=== PATIENT | male | born 1930 | race Caucasian/White ===

== ENCOUNTER → 2016-07-10 | Outpatient (REF) | payer MEDICARE ==
[2016-07-10 12:09] LABS: CALCIUM OXALATE CRYSTALS LARGE
== END ==
LOC: M LAB REF 11:31
PROVIDERS: ATTEND Internal Medicine
DX: N39.0 Urinary tract infection, site not specified (principal)

== ENCOUNTER 2017-01-12 10:37 | Inpatient (IN) | payer MEDICARE ==
[~2017-01-12] VITALS: Ht 177.8 cm; Wt 58.9 kg
[2017-01-12] MEDS ORDERED: AMOX-CLAV (10:51)
[2017-01-12] MEDS ORDERED: TRAZ-136 PO ×2 (10:51→14:16)
[2017-01-12] MEDS ORDERED: TYLE325C PO (10:51)
[2017-01-12] MEDS ORDERED: GUAI10EL PO (10:51)
[2017-01-12] MEDS ORDERED: RISP1SOL PO (10:51)
[2017-01-12] MEDS ORDERED: DIVA125C5 PO (10:51)
[2017-01-12] MEDS ORDERED: SERT-155 PO (10:51)
[2017-01-12 11:17] LABS: BASO % 0.1 % (0.0-1.0); EOS # 0.2 10^3/uL (0.0-0.50); EOS % 1.9 % (0.0-3.0); IMMATURE GRANULOCYTE % 0.5 % (0-0); LYMPH # 1.2 10^3/uL (1.5-4.5); LYMPH % 13.1 % (24.0-44.0); MEAN CORPUSCULAR HEMOGLOBIN 34.7 pg (27.0-33.0); MEAN CORPUSCULAR HGB CONC 34.7 g/dl (32.0-36.5); MONO # 0.6 10^3/uL (0.0-0.8); NEUTROPHILS # 7.5 10^3/uL (1.8-7.7); NEUTROPHILS % 78.4 % (36.0-66.0); PLATELET COUNT, AUTOMATED 257 10^3/uL (150-450); RED CELL DISTRIBUTION WIDTH 12.1 % (11.5-14.5); WHITE BLOOD COUNT 9.5 10^3/uL (4.0-10.0)
[2017-01-12 11:19] LABS: ADD MANUAL DIFFER NO; DIFF SLIDE NUMBER 131
[2017-01-12 11:32] LABS: INR 1.11
[2017-01-12 11:39] LABS: ALBUMIN 2.5 GM/DL (3.2-5.2); ALBUMIN/GLOBULIN RATIO 0.54 (1.00-1.93); ALKALINE PHOSPHATASE 76 U/L (45-117); ALT/SGPT 15 U/L (12-78); ANION GAP 9 MEQ/L (8-16); AST/SGOT 19 U/L (15-37); BILIRUBIN,DIRECT 0.1 MG/DL (0.0-0.2); BILIRUBIN,TOTAL 0.4 MG/DL (0.2-1.0); BLOOD UREA NITROGEN 12 MG/DL (7-18); CALCIUM LEVEL 8.4 MG/DL (8.8-10.2); CARBON DIOXIDE LEVEL 27 MEQ/L (21-32); CHLORIDE LEVEL 100 MEQ/L (98-107); CREATININE FOR GFR 0.66 MG/DL (0.70-1.30); GLOMERULAR FILTRATION RATE > 60.0 (>35); GLUCOSE, FASTING 99 MG/DL (83-110); POTASSIUM SERUM 3.5 MEQ/L (3.5-5.1); SODIUM LEVEL 136 MEQ/L (136-145); TOTAL PROTEIN 7.1 GM/DL (6.4-8.2)
[2017-01-12] MEDS ORDERED: ISOVUE-370 76% 100ML VIAL (Q9967) As Ordered ONE (11:52)
[2017-01-12] MEDS ORDERED: NS 500 ML IV ONE (14:00)
[2017-01-12] MEDS ORDERED: AUGM250S13 PO (14:16)
--- NOTE | 2017-01-12 14:23 | REP ---
PORTABLE CHEST: REASON: Shock and sepsis. COMPARISON: 04/14/2015 The patient is tilted to the right. The technique utilized in obtaining the radiograph has magnified the cardiac silhouette and accentuated the interstitial markings. Increased interstitial markings are seen diffusely throughout the lung phan increased from the prior exam. There is a discoid opacity in the left lower lobe. The heart is not enlarged. The osseous structures are stable and intact. IMPRESSION: Interstitial edema suspected with left basilar subsegmental atelectatic change. Signed by Marc Garrison DO 01/12/2017 02:59 P
--- NOTE | 2017-01-12 15:22 | REP ---
REASON: Diffuse abdominal pain. COMPARISON: 12/25/2004, which is the latest prior. Contrast utilized: 100 mL Isovue 370. Patchy opacities are seen in the lung bases. There is a small left pleural effusion. There is mild intrahepatic ductal dilatation. There are stable hepatic cysts. There are no enhancing hepatic abnormalities. The gallbladder, spleen, pancreas, adrenal glands, and kidneys are within normal limits for the patient's age. There are bilateral renal cysts, status quo and there are bilateral extrarenal pelves. The pancreas is small which can be seen in diabetics versus atrophy. The size has decreased compared to the prior exam, but there is no abnormal enhancement or inflammation. 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 There is no para-aortic adenopathy. There is no evidence of free fluid or free air in the abdomen. There are multiple mildly dilated gas-filled small bowel loops seen in the abdomen in no particular fashion. There is no evidence of intestinal obstruction. CT PELVIS: There is a large amount of stool in the sigmoid colon. Fecal impaction cannot be ruled out. The urinary bladder appears somewhat distended. Bone window technique throughout the examination shows chronic spinal degenerative changes with bone demineralization increased somewhat from the prior exam. IMPRESSION: 1. Lung base findings as described above. Subsegmental atelectatic change with and without pneumonia particularly on the left where there is also a small left pleural effusion. 2. There is a 3.4 cm size suprarenal abdominal aortic aneurysm. 3. Bilateral cysts. 4. Hepatic cyst unchanged. 5. Large amount of content in the rectal vault and within the sigmoid colon, which needs to be clinically evaluated for to rule out fecal impaction. This is seen in conjunction with what is most likely a slight small bowel ileus. 6. Other findings as describe above. Signed by Marc Garrison DO 01/12/2017 03:37 P
--- NOTE | 2017-01-12 17:04 | HPEPDOC ---
General Date of Admission 01/12/2017 Chief Complaint The patient is a 86-year-old male admitted with a reason for visit of Altered Mental. History of Present Illness PCP: Dr. Aristeo Pearson This is an 84 year old male with a hx of advanced dementia, recurrent aspiration pneumonia the last 6 months presenting this morning for dyspnea and fever for 2 days. The patient was brought in by ambulance and is accompained with his and caregiver. The patient is uncommunicative and was unable to give history therefore the caregiver and his answered all the questions. According to the patient was recently treated for aspiration pneumonia a month ago which was diagnosed via chest x-ray at his primary care physician's placed Dr. Aristeo Pearson. Patient was given Levaquin for 10 days and the family noticed improvement for a couple of days. 2 days to 3 days after completing the antibiotics the patient's symptoms returned and he was started on Augmentin. The patient to this date has completed 24 hours of Augmentin liquid 500 mg. The family notes 2 days ago the patient had a Tmax of 103 and since then his temperature has been elevated but not as high. Family does note the patient has a chronic cough but recently has accompanied by yellowish sputum. They denied having ever vomited, he is currently eats pured food and has a thickened diet. The family states in the last 2 months they have also noticed a significant decline in the patient. The patient has not ambulated in the last 2 months when he previously used to walk around the house and communicate more. Currently he just mumbles and does not have a conversation. Patient was diagnosed with Alzheimer's in 2008.The patient was last admitted here at [facility] dementia unit for advanced dementia. The patient was sent home because his family had conflict on keeping him there. In the ER the patient's vitals were stable his hematological and complete metabolic panel was within normal limits with slight elevation of the lactic acid of 2.1 with normal being at 2.0. Chest x-ray showed Interstitial edema suspected with left basilar subsegmental atelectatic change. CT of the abdomen and pelvis showed small bowel ileus possible fecal impaction. Home Medications Scheduled (Risperidone) 1 Mg/Ml Chanel, 0.5 ML PO BID, (Reported) GIVEN AT LUNCH AND BEDTIME (Sertraline HCl) 50 Mg Tab, 50 MG PO DAILY, (Reported) Amoxicillin/Clavulanate Potas (Augmentin 250-62.5 mg/5Ml) 1 Maegan Maegan, 250 MG PO BID, (Reported) Divalproex Sodium (Divalproex Sodium) 125 Mg Cap, 250 MG PO BID, (Reported) Trazodone HCl (Trazodone HCl) 100 Mg Tab, 200 MG PO QHS, (Reported) Trazodone HCl (Trazodone HCl) 100 Mg Tab, 50 MG PO DAILY, (Reported) Scheduled PRN (Tylenol) 325 Mg Cap, 325 MG PO Q6H PRN for PAIN, (Reported) Guaifenesin (Guaifenesin) 10 Ml Syrp, 5 ML PO Q4H PRN for CONGESTION, (Reported) Allergies Coded Allergies: No Known Drug Allergy (Verified Allergy, Unknown, 07/11/12) Past Medical History Medical History 1. Alzheimer's dementia 2. Recurrent aspiration pneumonia 3. Stroke Surgical History 1. Inguinal hernia repair 4 2. 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 Family History Heart disease in father and grandmother. Arthritis in grandparents. Hypertension in grandmother. Mother had Alzheimer's Social History * Smoker: Denies Alcohol: Denies Drugs: denies Recent Travel/Sick Contacts: Denies: Recent travel, Recent sick contacts Psychosocial History: Dementia Review of Symptoms Constitutional: Reports: Fever (Tmax 103 on 01/10/17), Denies: Chills, Night Sweats Eyes: Denies: Pain, Vision change ENT: Denies: Head Aches, Ear Pain, Dysphagia Skin: Denies: Rash, Lesions, Breakdown Pulmonary: Reports: Cough (chronic recently yellow sputum for the last couple days), Denies: Dyspnea Cardiovascular: Denies: Chest Pain, Palpitations, Orthopnea, Paroxysmal Noc. Dyspnea, Lt Headedness Gastrointestinal: Reports: Constipation, Denies: Nausea, Vomiting, Abdominal Pain, Diarrhea Genitourinary: Denies: Dysuria, Frequency, Incontinence, Retention Hematologic: Denies: Bruising, Bleeding Excessively Musculoskeletal: Denies: Neck Pain, Back Pain, Joint Pain, Muscle Pain, Spasms Neurological: Reports: Other Symptoms (underlying advanced dementia), Denies: Weakness, Numbness, Change in speech, Confusion Psych: Denies: Depression, Memory Issues Physical Examination General Exam: Positive: Other (this is an 86-year-old pleasant gentleman in no acute distress with advanced dementia.), Negative: Alert Eye Exam: Negative: Sclera icteric ENT Exam: Positive: Atraumatic, Mucous membr. moist/pink, Pharynx Normal Neck Exam: Positive: Supple, Negative: JVD, thyromegaly Chest Exam: Positive: Other (bibasilar crackles diminished breath sounds due to lack of effort.) Heart Exam: Positive: Rate Normal, Regular Rhythm, Normal S1, Normal S2, Negative: Murmurs, Rubs Telemetry: Positive: No significant arrhythmia Abdomen Exam: Positive: Normal bowel sounds, Negative: Soft (rigid abdomen), Tenderness, Hepatospenomegaly Extremity Exam: Positive: Normal pulses, Negative: Clubbing, Cyanosis, Edema Skin Exam: Positive: Nl turgor and temperature, Negative: Breakdown, Lesion Neuro Exam: Negative: Normal Speech (noncommunicative) Vital Signs Vital Signs Date Time Temp Pulse Resp B/P (MAP) Pulse Ox O2 Delivery O2 Flow Rate FiO2 01/12/17 13:42 146/111 (123) 01/12/17 13:37 92 01/12/17 12:37 76 01/12/17 10:40 99.0 24 Room Air Laboratory Data Labs 24H Laboratory Tests 2 01/12/17 11:05: Prothrombin Time 14.5, Prothromb Time International Ratio 1.11, Activated Partial Thromboplast Time 34.1, Anion Gap 9, Glomerular Filtration Rate > 60.0, Calcium Level 8.4L, Aspartate Amino Transf (AST/SGOT) 19, Alanine Aminotransferase (ALT/SGPT) 15, Alkaline Phosphatase 76, Total Bilirubin 0.4, Direct Bilirubin 0.1, Total Protein 7.1, Albumin 2.5L, Albumin/Globulin Ratio 0.54L 01/12/17 11:06: Immature Granulocyte % (Auto) 0.5H, White Blood Count 9.5, Red Blood Count 3.83L , Hemoglobin 13.3L, Hematocrit 38.3L, Mean Corpuscular Volume 100.0H, Mean Corpuscular Hemoglobin 34.7H, Mean Corpuscular Hemoglobin Concent 34.7, Red Cell Distribution Width 12.1, Platelet Count 257, Neutrophils (%) (Auto) 78.4H, Lymphocytes (%) (Auto) 13.1L, Monocytes (%) (Auto) 6.0H, Eosinophils (%) (Auto) 1.9, Basophils (%) (Auto) 0.1, Neutrophils # (Auto) 7.5, Lymphocytes # (Auto) 1.2L, Monocytes # (Auto) 0.6, Eosinophils # (Auto) 0.2, Basophils # (Auto) 0.0, Immature Granulocyte # (Auto) 0.1H, Nucleated Red Blood Cells % (auto) 0.0, Lactic Acid Level 2.1*H 01/12/17 11:31: Urine Appearance CLEAR, Urine Color YELLOW, Urine pH 6.0, Urine Specific [place] 1.016, Urine Protein NEGATIVE, Urine Glucose (UA) NEGATIVE, Urine Ketones NEGATIVE, Urine Urobilinogen 2.0H, Urine Bilirubin NEGATIVE, Urine Leukocyte Esterase NEGATIVE, Urine Blood NEGATIVE, Urine Nitrite NEGATIVE, Urine WBC (Auto) 1, Urine RBC (Auto) 2, Urine Hyaline Casts (Auto) 0, Urine Bacteria (Auto) NEGATIVE, Urine Squamous Epithelial Cells 0, Urine Amorphous Sediment SMALLH, Urine Mucus (Auto) SMALL, Urine Sperm (Auto) CBC/BMP Laboratory Tests 01/12/17 11:05 01/12/17 11:06 Red Blood Count 3.83 L, Mean Corpuscular Volume 100.0 H, Mean Corpuscular Hemoglobin 34.7 H, Mean Corpuscular Hemoglobin Concent 34.7, Red Cell Distribution Width 12.1, Neutrophils (%) (Auto) 78.4 H, Lymphocytes (%) (Auto) 13.1 L, Monocytes (%) (Auto) 6.0 H, Eosinophils (%) (Auto) 1.9, Basophils (%) ( Auto) 0.1, Neutrophils # (Auto) 7.5, Lymphocytes # (Auto) 1.2 L, Monocytes # ( Auto) 0.6, Eosinophils # (Auto) 0.2, Basophils # (Auto) 0.0 Microbiology Microbiology 01/12/17 Blood Culture, Received Pending 01/12/17 Blood Culture, Received Pending 01/12/17 Influenza Virus Type A Antigen - Final, Complete 01/12/17 Influenza Virus Type B Antigen - Final, Complete 01/12/17 Urine Culture, Received Pending Assessment/Plan 1. Recurrent aspiration pneumonia- patient does have a history of recurrent aspiration pneumonia for the past 6 months. We will admit the patient and treat him with IV Levaquin deep nasotracheal suction q2hp PRN, elevated head of the bed swallow evaluation 2. History of advanced Alzheimer dementia - Family is considering hospice, till she can meet with them on Saturday the patient will be admitted and get medical treatment. He is to continue all his home medication 3. DVT prophylaxis Lovenox 4. Diet - pured diet 5. Small bowel ileus - fecal in the rectal vault prescribed Sudeep S twice a day , milk of Magnesium daily 6. Hospice consult 7. CODE STATUS DNR Plan / VTE VTE Prophylaxis Ordered?: Yes (Lovenox) GME ATTESTATION GME ATTESTATION My preceptor for this patient encounter was physically present in the building during the encounter and was fully available. As needed, all aspects of the patient interview, examination, medical decision making process, and medical care plan development were reviewed and approved by the preceptor. Preceptor is aware and concurs with the plan as stated in the body of this note and will attest to such by his/her cosignature. VADIM MCKEE DO Jan 12, 2017 14:29
[2017-01-12] MEDS ORDERED: guaiFENesin SYRUP 200 MG/10 ML UDC PO PRN (17:30)
[2017-01-12] MEDS: LevoFLOXacin IV 750 MG in APPROPRIATE DILUENT 1 EA IV SCH (18:10)
[2017-01-12 20:24] VITALS: BP 108/73
[2017-01-12 22:00] VITALS: BP 96/61
[2017-01-12] MEDS: traZODone 100 MG TAB PO SCH (22:42)
[2017-01-12] MEDS: SENOKOT S TAB PO SCH (22:43)
[2017-01-12] MEDS: DIVALPROEX SPRINKLE 125 MG CAP PO SCH (22:44)
[2017-01-12] MEDS: risperiDONE 1 MG/1 ML SOLN ORAL SYRINGE PO SCH (22:44)
[2017-01-13 06:00] VITALS: BP 106/73
[2017-01-13 06:20] LABS: MEAN CORPUSCULAR HEMOGLOBIN 34.4 pg (27.0-33.0); MEAN CORPUSCULAR VOLUME 98.5 fl (80.0-96.0); RED CELL DISTRIBUTION WIDTH 12.1 % (11.5-14.5)
[2017-01-13 06:44] LABS: ANION GAP 7 MEQ/L (8-16); BLOOD UREA NITROGEN 13 MG/DL (7-18); CALCIUM LEVEL 8.3 MG/DL (8.8-10.2); CARBON DIOXIDE LEVEL 26 MEQ/L (21-32); CHLORIDE LEVEL 107 MEQ/L (98-107); CREATININE FOR GFR 0.79 MG/DL (0.70-1.30); GLOMERULAR FILTRATION RATE > 60.0 (>35); GLUCOSE, FASTING 96 MG/DL (83-110); SODIUM LEVEL 140 MEQ/L (136-145)
--- NOTE | 2017-01-13 09:38 | IPNPDOC ---
Subjective Date Seen The patient was seen on 01/13/17. Subjective Chief Complaint/HPI Patient seen and examined at the bedside. Remains obtunded, and non-responsive to verbal or physical stimuli. Patient's at the bedside, updated. Objective Physical Examination General Exam: Positive: No Acute Distress, Negative: Alert, Cooperative ENT Exam: Positive: Atraumatic, Mucous membr. moist/pink Neck Exam: Negative: JVD Chest Exam: Positive: Diminished Heart Exam: Positive: Rate Normal, Normal S1, Normal S2 Abdomen Exam: Positive: Soft, Negative: Tenderness Extremity Exam: Negative: Tenderness, Swelling Assessment /Plan Plan/VTE VTE Prophylaxis Ordered?: Yes Plan Recurrent Aspiration Pneumonia Patient with multiple episodes of recurrent aspiration in the past 2/2 underlying dementia No feeding tube as per patient's Will cont Pureed diet We will cont to treat the patient with Levaquin at this time The patient's has requested to meet with hospice--she would like to continue medical treatment in the AM History of Advanced Alzheimer Dementia Cont current regimen DVT prophylaxis Lovenox [place] CODE STATUS: DNR/DNI VS, I&O, 24H, [facility] Vital Signs/I&O Vital Signs Date Time Temp Pulse Resp B/P (MAP) Pulse Ox O2 Delivery O2 Flow Rate FiO2 01/13/17 06:00 98.7 84 19 106/73 (84) 95 Room Air I&O- Last 24 Hours up to 6 AM 01/14/17 06:00 Intake Total 0 ml Balance 0 ml Laboratory Data 24H LABS Laboratory Tests 2 01/12/17 11:05: Prothrombin Time 14.5, Prothromb Time International Ratio 1.11, Activated Partial Thromboplast Time 34.1, Anion Gap 9, Glomerular Filtration Rate > 60.0, Calcium Level 8.4L, Aspartate Amino Transf (AST/SGOT) 19, Alanine Aminotransferase (ALT/SGPT) 15, Alkaline Phosphatase 76, Total Bilirubin 0.4, Direct Bilirubin 0.1, Total Protein 7.1, Albumin 2.5L, Albumin/Globulin Ratio 0.54L 01/12/17 11:06: Immature Granulocyte % (Auto) 0.5H, White Blood Count 9.5, Red Blood Count 3.83L , Hemoglobin 13.3L, Hematocrit 38.3L, Mean Corpuscular Volume 100.0H, Mean Corpuscular Hemoglobin 34.7H, Mean Corpuscular Hemoglobin Concent 34.7, Red Cell Distribution Width 12.1, Platelet Count 257, Neutrophils (%) (Auto) 78.4H, Lymphocytes (%) (Auto) 13.1L, Monocytes (%) (Auto) 6.0H, Eosinophils (%) (Auto) 1.9, Basophils (%) (Auto) 0.1, Neutrophils # (Auto) 7.5, Lymphocytes # (Auto) 1.2L, Monocytes # (Auto) 0.6, Eosinophils # (Auto) 0.2, Basophils # (Auto) 0.0, Immature Granulocyte # (Auto) 0.1H, Nucleated Red Blood Cells % (auto) 0.0, Lactic Acid Level 2.1*H 01/12/17 11:31: Urine Appearance CLEAR, Urine Color YELLOW, Urine pH 6.0, Urine Specific [place] 1.016, Urine Protein NEGATIVE, Urine Glucose (UA) NEGATIVE, Urine Ketones NEGATIVE, Urine Urobilinogen 2.0H, Urine Bilirubin NEGATIVE, Urine Leukocyte Esterase NEGATIVE, Urine Blood NEGATIVE, Urine Nitrite NEGATIVE, Urine WBC (Auto) 1, Urine RBC (Auto) 2, Urine Hyaline Casts (Auto) 0, Urine Bacteria (Auto) NEGATIVE, Urine Squamous Epithelial Cells 0, Urine Amorphous Sediment SMALLH, Urine Mucus (Auto) SMALL, Urine Sperm (Auto) 01/12/17 17:38: Lactic Acid Followup at 4 Hours 2.2*H 01/13/17 06:09: Anion Gap 7L, Glomerular Filtration Rate > 60.0, Blood Urea Nitrogen 13, Creatinine 0.79, Sodium Level 140, Potassium Level 4.0, Chloride Level 107, Carbon Dioxide Level 26, Calcium Level 8.3L CBC/BMP Laboratory Tests 01/12/17 11:05 01/12/17 11:06 Red Blood Count 3.83 L, Mean Corpuscular Volume 100.0 H, Mean Corpuscular Hemoglobin 34.7 H, Mean Corpuscular Hemoglobin Concent 34.7, Red Cell Distribution Width 12.1, Neutrophils (%) (Auto) 78.4 H, Lymphocytes (%) (Auto) 13.1 L, Monocytes (%) (Auto) 6.0 H, Eosinophils (%) (Auto) 1.9, Basophils (%) ( Auto) 0.1, Neutrophils # (Auto) 7.5, Lymphocytes # (Auto) 1.2 L, Monocytes # ( Auto) 0.6, Eosinophils # (Auto) 0.2, Basophils # (Auto) 0.0 01/13/17 06:09 Red Blood Count 3.31 L, Mean Corpuscular Volume 98.5 H, Mean Corpuscular Hemoglobin 34.4 H, Mean Corpuscular Hemoglobin Concent 35.0, Red Cell Distribution Width 12.1, Calcium Level 8.3 L Microbiology Microbiology 01/12/17 Blood Culture, Received Pending 01/12/17 Blood Culture, Received Pending 01/12/17 Influenza Virus Type A Antigen - Final, Complete 01/12/17 Influenza Virus Type B Antigen - Final, Complete 01/12/17 Urine Culture, Received Pending ALOK JIMENEZ MD Jan 13, 2017 09:38
[2017-01-13] MEDS: MOM 30ML SUSPENSION UDC PO SCH ×2 (10:07→10:09)
[2017-01-13] MEDS: SENOKOT S TAB PO SCH ×2 (10:07→20:06)
[2017-01-13] MEDS: SERTRALINE HCL 50 MG TAB PO SCH (10:07)
[2017-01-13] MEDS: ENOXAPARIN 40 MG/0.4 ML SYRINGE (J1650) SC SCH (10:07)
[2017-01-13] MEDS: traZODone 50 MG TAB PO SCH (10:07)
[2017-01-13] MEDS: DIVALPROEX SPRINKLE 125 MG CAP PO SCH ×2 (10:07→20:05)
[2017-01-13] MEDS: risperiDONE 1 MG/1 ML SOLN ORAL SYRINGE PO SCH ×2 (11:54→20:05)
--- NOTE | 2017-01-13 12:36 | ECGEPIP ---
Stationary ECG Study [facility] - ED Test Date: 2017-01-12 Pat Name: REANNA MEEHAN Department: Room: - Gender: M Echo Technician: afia : [id number] Requested By: AIDE Loja Order Number: [id number] Reading MD: Janeth Zaidi Measurements Intervals [place] Rate: 77 P: 49 CT: 186 QRS: -39 QRSD: 98 T: 66 QT: 393 QTc: 446 Interpretive Statements SINUS RHYTHM MARKED LEFT AXIS DEVIATION BASELINE ARTIFACT LIMITS INTERPRETATION Electronically Signed On 01-13-2017 12:36:00 EDT by Janeth Zaidi
[2017-01-13 14:00] VITALS: BP 95/64
[2017-01-13] MEDS: LevoFLOXacin IV 750 MG in APPROPRIATE DILUENT 1 EA IV SCH (17:21)
[2017-01-13] MEDS: traZODone 100 MG TAB PO SCH (20:05)
[2017-01-13 22:00] VITALS: BP 92/59
[2017-01-14 06:00] VITALS: BP 101/61
[2017-01-14] MEDS: traZODone 50 MG TAB PO SCH (09:00)
[2017-01-14] MEDS: DIVALPROEX SPRINKLE 125 MG CAP PO SCH ×2 (09:00→21:10)
[2017-01-14] MEDS: SENOKOT S TAB PO SCH ×2 (09:00→21:00)
[2017-01-14] MEDS: ENOXAPARIN 40 MG/0.4 ML SYRINGE (J1650) SC SCH (09:00)
[2017-01-14] MEDS: MOM 30ML SUSPENSION UDC PO SCH (09:00)
[2017-01-14] MEDS: SERTRALINE HCL 50 MG TAB PO SCH (09:00)
[2017-01-14] MEDS ORDERED: FLEET ENEMA PR PRN (11:00)
[2017-01-14] MEDS: risperiDONE 1 MG/1 ML SOLN ORAL SYRINGE PO SCH ×2 (11:54→21:10)
[2017-01-14 14:00] VITALS: BP 117/61
--- NOTE | 2017-01-14 14:07 | IPNPDOC ---
Subjective Date Seen The patient was seen on 01/14/17. Subjective Chief Complaint/HPI Patient seen and examined at the bedside. Remains lethargic and mostly unresponsive to verbal/physical examination. Objective Physical Examination General Exam: Positive: No Acute Distress, Negative: Alert, Cooperative ENT Exam: Positive: Atraumatic, Mucous membr. moist/pink Neck Exam: Negative: JVD Chest Exam: Positive: Diminished Heart Exam: Positive: Rate Normal, Normal S1, Normal S2 Abdomen Exam: Positive: Soft, Negative: Tenderness Extremity Exam: Negative: Tenderness, Swelling Assessment /Plan Plan/VTE VTE Prophylaxis Ordered?: Yes Plan Recurrent Aspiration Pneumonia Patient with multiple episodes of recurrent aspiration in the past 2/2 underlying dementia No feeding tube as per patient's Will cont Pureed diet We will cont to treat the patient with Levaquin at this time The patient's has requested to meet with hospice--she would like to continue medical treatment in the AM History of Advanced Alzheimer Dementia Cont current regimen DVT prophylaxis Lovenox [place] CODE STATUS: DNR/DNI Dispo--Awaiting Hospice consult. Patient's family will likely need House of Hospice placement. VS, I&O, 24H, Fishbone Vital Signs/I&O Vital Signs Date Time Temp Pulse Resp B/P (MAP) Pulse Ox O2 Delivery O2 Flow Rate FiO2 01/14/17 11:08 Room Air 01/14/17 06:00 98.5 61 14 101/61 (74) 92 I&O- Last 24 Hours up to 6 AM 01/15/17 06:00 Intake Total 240 ml Balance 240 ml Laboratory Data Microbiology Microbiology 01/12/17 Blood Culture - Preliminary, Resulted No Growth after 48 hours. All Specime... 01/12/17 Blood Culture - Preliminary, Resulted No Growth after 48 hours. All Specime... 01/12/17 Influenza Virus Type A Antigen - Final, Complete 01/12/17 Influenza Virus Type B Antigen - Final, Complete 01/12/17 Urine Culture - Final, Complete ALOK JIMENEZ MD Jan 14, 2017 14:06
[2017-01-14] MEDS: LevoFLOXacin IV 750 MG in APPROPRIATE DILUENT 1 EA IV SCH (18:00)
[2017-01-14] MEDS: traZODone 100 MG TAB PO SCH (21:10)
[2017-01-14 22:00] VITALS: BP 96/59
[2017-01-15 06:00] VITALS: BP 106/66
[2017-01-15] MEDS: SENOKOT S TAB PO SCH ×2 (08:59→17:52)
[2017-01-15] MEDS: MOM 30ML SUSPENSION UDC PO SCH (08:59)
[2017-01-15] MEDS: traZODone 50 MG TAB PO SCH (10:28)
[2017-01-15] MEDS: SERTRALINE HCL 50 MG TAB PO SCH (10:28)
[2017-01-15] MEDS: DIVALPROEX SPRINKLE 125 MG CAP PO SCH ×2 (10:28→17:53)
[2017-01-15] MEDS: ENOXAPARIN 40 MG/0.4 ML SYRINGE (J1650) SC SCH (10:29)
--- NOTE | 2017-01-15 11:09 | IPNPDOC ---
Date Seen The patient was seen on 01/15/17. Progress Note SUBJECTIVE: Patient is a 86-year-old male with end-stage advanced/advanced Alzheimer's and recurrent aspiration pneumonia. He remains lethargic. Otherwise , unresponsive to verbal and physical examination. His is present at bedside and does feel that he is comfortable otherwise. She is to meet with hospice today and will discuss further comfort measures and home with hospice versus placement in hospice house versus usp. OBJECTIVE PHYSICAL EXAMINATION: VITAL SIGNS: Please see below. GENERAL: No acute distress HEENT: PERRLA CARDIOVASCULAR: Regular rate and rhythm. RESPIRATORY: Diminished bibasilar breath sounds, otherwise clear. ABDOMINAL: Soft, nontender, no rebound EXTREMITIES: No edema, no calf tenderness DVT prophylaxis ordered?: Yes ASSESSMENT AND PLAN: This is a [86-year-old gentleman with advanced dementia and worsening recurrent aspiration pneumonia. PROBLEMS: 1.Recurrent Aspiration Pneumonia Patient with multiple episodes of recurrent aspiration in the past 2/2 underlying dementia No feeding tube as per patient's Will cont Pureed diet when necessary/as tolerated We will cont to treat the patient with Levaquin at this time The patient's is to meet with hospice this morning for further delineation of disposition. 2.History of Advanced Alzheimer Dementia Cont current regimen 3.DVT prophylaxis Lovenox [place] CODE STATUS: DNR/DNI Dispo--Awaiting Hospice consult. Patient's family will likely need House of Hospice placement. DISPOSITION: Awaiting hospice consult. VS, I&O, 24H, Fishbone Vital Signs/I&O Vital Signs Date Time Temp Pulse Resp B/P (MAP) Pulse Ox O2 Delivery O2 Flow Rate FiO2 01/15/17 09:32 Room Air 01/15/17 06:00 98.4 69 18 106/66 (79) 90 I&O- Last 24 Hours up to 6 AM 01/16/17 06:00 Intake Total 0 ml Balance 0 ml Laboratory Data Microbiology Microbiology 01/12/17 Blood Culture - Preliminary, Resulted No Growth after 48 hours. All Specime... 01/12/17 Blood Culture - Preliminary, Resulted No Growth after 48 hours. All Specime... 01/12/17 Influenza Virus Type A Antigen - Final, Complete 01/12/17 Influenza Virus Type B Antigen - Final, Complete 01/12/17 Urine Culture - Final, Complete JULIO RAMAN DO Jan 15, 2017 11:09
[2017-01-15] MEDS: risperiDONE 1 MG/1 ML SOLN ORAL SYRINGE PO SCH ×2 (12:00→17:53)
[2017-01-15 14:00] VITALS: BP 107/67
[2017-01-15] MEDS: LevoFLOXacin IV 750 MG in APPROPRIATE DILUENT 1 EA IV SCH (17:52)
[2017-01-15] MEDS: traZODone 100 MG TAB PO SCH (17:52)
[2017-01-15 22:00] VITALS: BP 107/68
[2017-01-16 06:00] VITALS: BP 113/67
[2017-01-16] MEDS: SENOKOT S TAB PO SCH ×2 (09:00→15:38)
[2017-01-16] MEDS: MOM 30ML SUSPENSION UDC PO SCH (09:00)
[2017-01-16] MEDS: traZODone 50 MG TAB PO SCH (09:15)
[2017-01-16] MEDS: SERTRALINE HCL 50 MG TAB PO SCH (09:15)
[2017-01-16] MEDS: DIVALPROEX SPRINKLE 125 MG CAP PO SCH ×2 (09:15→17:51)
[2017-01-16] MEDS: ENOXAPARIN 40 MG/0.4 ML SYRINGE (J1650) SC SCH (09:16)
[2017-01-16] MEDS ORDERED: ONDANSETRON 4 MG ORAL DISINTEGRATING TAB (S0181) PO PRN (10:00)
[2017-01-16] MEDS ORDERED: HYOSCYAMINE SULFATE 0.125 MG SUBL TABLET PO PRN (10:00)
[2017-01-16] MEDS ORDERED: ATROPINE SULFATE 1% OP SOLN 2 ML BTL SL PRN (10:00)
[2017-01-16] MEDS ORDERED: FLEET ENEMA PR PRN (10:00)
--- NOTE | 2017-01-16 11:50 | IPNPDOC ---
Date Seen The patient was seen on 01/16/17. Progress Note SUBJECTIVE: Patient is a 86 yo male seen at bedside with family present. No new issues. OBJECTIVE PHYSICAL EXAMINATION: VITAL SIGNS: Please see below. GENERAL: lethargic HEENT: perrla, throat clear CARDIOVASCULAR: RRR RESPIRATORY: CTA BILATERALLY. ABDOMINAL: SOFT EXTREMITIES: NO EDEMA, NONTENDER LABORATORY DATA: NONE. ASSESSMENT AND PLAN: This is a 86 YO male with advancing dementia and recurrent aspiration pneumonia. PROBLEMS: 1.Recurrent Aspiration Pneumonia 2.Lactic acidosis on admission likely secondary to aspiration pneumonia 3. Protein calorie malnutrition in setting of advanced dementia wit albumin 2.5 , BMI 18.6 4.History of Advanced Alzheimer Dementia 5.DVT prophylaxis Lovenox [place] CODE STATUS: DNR/DNI and now MUSEUM OR ZOO DIRECTOR. DISPOSITION: [Awaiting clarification from hospice and PFS. Updated MOLST to include MUSEUM OR ZOO DIRECTOR (witnessed by ) and added MUSEUM OR ZOO DIRECTOR order set. VS, I&O, 24H, Fishbone Vital Signs/I&O Vital Signs Date Time Temp Pulse Resp B/P (MAP) Pulse Ox O2 Delivery O2 Flow Rate FiO2 01/16/17 06:00 98.0 60 18 113/67 (82) 92 Room Air I&O- Last 24 Hours up to 6 AM 01/17/17 06:00 Intake Total 0 ml Balance 0 ml Laboratory Data Microbiology Microbiology 01/12/17 Blood Culture - Preliminary, Resulted No Growth after 72 hours. All specime... 01/12/17 Blood Culture - Preliminary, Resulted No Growth after 72 hours. All specime... 01/12/17 Influenza Virus Type A Antigen - Final, Complete 01/12/17 Influenza Virus Type B Antigen - Final, Complete 01/12/17 Urine Culture - Final, Complete JULIO RAMAN DO Jan 16, 2017 11:50
[2017-01-16] MEDS: risperiDONE 1 MG/1 ML SOLN ORAL SYRINGE PO SCH ×2 (13:31→17:51)
[2017-01-16 14:00] VITALS: BP 110/72
[2017-01-16] MEDS: LevoFLOXacin 500 MG TABLET PO SCH (15:38)
[2017-01-16] MEDS: traZODone 100 MG TAB PO SCH (17:51)
[2017-01-17] MEDS: LevoFLOXacin 500 MG TABLET PO SCH (05:50)
[2017-01-17] MEDS: MORPHINE 10MG/0.5ML ORAL CONCENTRATE SOLUTION U/D SL PRN ×2 (05:59→19:40)
[2017-01-17] MEDS: MOM 30ML SUSPENSION UDC PO SCH (09:06)
[2017-01-17] MEDS: DIVALPROEX SPRINKLE 125 MG CAP PO SCH ×2 (09:06→18:03)
[2017-01-17] MEDS: SERTRALINE HCL 50 MG TAB PO SCH (09:06)
[2017-01-17] MEDS: traZODone 50 MG TAB PO SCH (09:06)
[2017-01-17] MEDS: ENOXAPARIN 40 MG/0.4 ML SYRINGE (J1650) SC SCH (09:06)
[2017-01-17] MEDS: SENOKOT S TAB PO SCH ×2 (09:06→18:03)
[2017-01-17] MEDS: risperiDONE 1 MG/1 ML SOLN ORAL SYRINGE PO SCH ×2 (11:54→18:03)
[2017-01-17] MEDS: traZODone 100 MG TAB PO SCH (18:03)
[2017-01-18] MEDS: LevoFLOXacin 500 MG TABLET PO SCH (06:07)
[2017-01-18] MEDS: MOM 30ML SUSPENSION UDC PO SCH (09:00)
[2017-01-18] MEDS: DIVALPROEX SPRINKLE 125 MG CAP PO SCH ×2 (09:33→17:39)
[2017-01-18] MEDS: traZODone 50 MG TAB PO SCH (09:33)
[2017-01-18] MEDS: SERTRALINE HCL 50 MG TAB PO SCH (09:34)
[2017-01-18] MEDS: SENOKOT S TAB PO SCH ×2 (09:34→17:39)
[2017-01-18] MEDS: ENOXAPARIN 40 MG/0.4 ML SYRINGE (J1650) SC SCH (09:34)
[2017-01-18] MEDS: risperiDONE 1 MG/1 ML SOLN ORAL SYRINGE PO SCH ×2 (12:00→17:39)
[2017-01-18] MEDS: traZODone 100 MG TAB PO SCH (17:39)
[2017-01-19] MEDS: LevoFLOXacin 500 MG TABLET PO SCH (06:19)
[2017-01-19] MEDS: MOM 30ML SUSPENSION UDC PO SCH ×2 (09:00→09:31)
[2017-01-19] MEDS: DIVALPROEX SPRINKLE 125 MG CAP PO SCH ×2 (09:31→19:01)
[2017-01-19] MEDS: ENOXAPARIN 40 MG/0.4 ML SYRINGE (J1650) SC SCH (09:31)
[2017-01-19] MEDS: SERTRALINE HCL 50 MG TAB PO SCH (09:32)
[2017-01-19] MEDS: SENOKOT S TAB PO SCH ×2 (09:32→19:00)
[2017-01-19] MEDS: traZODone 50 MG TAB PO SCH (09:32)
[2017-01-19] MEDS: risperiDONE 1 MG/1 ML SOLN ORAL SYRINGE PO SCH ×2 (12:40→19:01)
[2017-01-19] MEDS: traZODone 100 MG TAB PO SCH (19:01)
[2017-01-20] MEDS: LevoFLOXacin 500 MG TABLET PO SCH (05:59)
[2017-01-20] MEDS: traZODone 50 MG TAB PO SCH (08:58)
[2017-01-20] MEDS: SENOKOT S TAB PO SCH ×2 (08:59→18:02)
[2017-01-20] MEDS: DIVALPROEX SPRINKLE 125 MG CAP PO SCH ×2 (08:59→18:02)
[2017-01-20] MEDS: SERTRALINE HCL 50 MG TAB PO SCH (08:59)
[2017-01-20] MEDS: ENOXAPARIN 40 MG/0.4 ML SYRINGE (J1650) SC SCH (09:00)
[2017-01-20] MEDS: MOM 30ML SUSPENSION UDC PO SCH ×2 (09:00→18:09)
[2017-01-20] MEDS: risperiDONE 1 MG/1 ML SOLN ORAL SYRINGE PO SCH ×2 (13:50→18:03)
[2017-01-20] MEDS: MORPHINE 10MG/0.5ML ORAL CONCENTRATE SOLUTION U/D SL PRN (17:11)
[2017-01-20] MEDS: traZODone 100 MG TAB PO SCH (18:02)
[2017-01-21] MEDS: LevoFLOXacin 500 MG TABLET PO SCH (05:56)
[2017-01-21] MEDS: SERTRALINE HCL 50 MG TAB PO SCH (08:36)
[2017-01-21] MEDS: SENOKOT S TAB PO SCH ×2 (08:36→17:56)
[2017-01-21] MEDS: traZODone 50 MG TAB PO SCH (08:36)
[2017-01-21] MEDS: DIVALPROEX SPRINKLE 125 MG CAP PO SCH ×2 (08:36→17:57)
[2017-01-21] MEDS: MOM 30ML SUSPENSION UDC PO SCH (08:36)
[2017-01-21] MEDS: ENOXAPARIN 40 MG/0.4 ML SYRINGE (J1650) SC SCH (08:36)
[2017-01-21] MEDS ORDERED: SCOPOLAMINE 1.5 MG TRANSDERMAL TOP SCH (09:00)
[2017-01-21] MEDS: risperiDONE 1 MG/1 ML SOLN ORAL SYRINGE PO SCH ×2 (12:01→17:56)
[2017-01-21] MEDS: MORPHINE 10MG/0.5ML ORAL CONCENTRATE SOLUTION U/D SL PRN ×3 (14:56→23:08)
[2017-01-21] MEDS: traZODone 100 MG TAB PO SCH (17:56)
[2017-01-21] MEDS ORDERED: ACETAMINOPHEN 325 MG SUPP PR ONE (20:30)
[2017-01-21] MEDS ORDERED: MORPHINE 10MG/0.5ML ORAL CONCENTRATE SOLUTION U/D SL ONE (20:45)
[2017-01-21] MEDS: LORazepam 1 MG TAB PO PRN ×2 (20:47→23:07)
[2017-01-22] MEDS: LORazepam 1 MG TAB PO PRN ×3 (05:01→10:41)
[2017-01-22] MEDS: MORPHINE 10MG/0.5ML ORAL CONCENTRATE SOLUTION U/D SL PRN ×3 (05:01→10:41)
[2017-01-22] MEDS: LevoFLOXacin 500 MG TABLET PO SCH (05:43)
[2017-01-22] MEDS: traZODone 50 MG TAB PO SCH (08:06)
[2017-01-22] MEDS: MOM 30ML SUSPENSION UDC PO SCH (08:06)
[2017-01-22] MEDS: DIVALPROEX SPRINKLE 125 MG CAP PO SCH (08:06)
[2017-01-22] MEDS: SERTRALINE HCL 50 MG TAB PO SCH (08:06)
[2017-01-22] MEDS: SENOKOT S TAB PO SCH (08:06)
[2017-01-22] MEDS: ENOXAPARIN 40 MG/0.4 ML SYRINGE (J1650) SC SCH (08:07)
[2017-01-22] MEDS ORDERED: MORP20SO3 SL (09:12)
[2017-01-22] MEDS ORDERED: ATIV1TAB7 PO (09:12)
[2017-01-22] MEDS ORDERED: ONDA4TAB6 PO (09:12)
[2017-01-22] MEDS ORDERED: HYOS125TA PO (09:12)
[2017-01-22] MEDS ORDERED: MORP20SO3 PO (10:13)
[2017-01-22] MEDS ORDERED: LORA0.5T11 PO (10:13)
--- NOTE | 2017-01-22 11:26 | DSES ---
DATE OF ADMISSION: 01/12/2017 DATE OF DISCHARGE: ATTENDING PHYSICIAN: Nilson Gentile DO PRINCIPAL DIAGNOSIS: Recurrent aspiration pneumonia. SECONDARY DIAGNOSES: Protein-calorie malnutrition secondary to advanced dementia, lactic acidosis secondary to aspiration pneumonia, advanced Alzheimer disease. HISTORY: The patient was admitted to the hospitalist service. I was rounding for them the day he was discharged to the Hospice House. 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 His problems are summarized above. Details of his hospitalization in permanent medical record will not be repeated here. He is discharged to the Hospice House. Medications are: - Roxanol 6 mg every 2 hours as needed for pain - Transderm Scop 1.5 mg patch every 3 days - Ativan 1 mg by mouth or sublingual every 2 hours as needed for pain - Zofran 4 mg every 6 hours as needed The prognosis is poor. Support was offered to the family.
== END 2017-01-22 10:57 | disposition hospice, inpatient (51) | DRG 178 ==
LOC: EDBD 10:37 → M ED 10:37 → M ED INP 16:48 → M MSPAV 20:23
PROVIDERS: ADMIT Internal Medicine; ATTEND Hospitalist
DX: J69.0 Pneumonitis due to inhalation of food and vomit (principal); K56.7 Ileus, unspecified; E87.2 Acidosis; E46 Unspecified protein-calorie malnutrition; Z68.1 Body mass index [BMI] 19.9 or less, adult; Z66 Do not resuscitate; Z51.5 Encounter for palliative care; G30.9 Alzheimer's disease, unspecified; F02.80 Dementia in other diseases classified elsewhere, unspecified severity, without behavioral disturbance, psychotic disturbance, mood disturbance, and anxiety; Z79.899 Other long term (current) drug therapy; Z86.73 Personal history of transient ischemic attack (TIA), and cerebral infarction without residual deficits; Z85.828 Personal history of other malignant neoplasm of skin